=== PATIENT | female | born 1935 | race Caucasian/White ===

== ENCOUNTER 2020-04-04 19:34 | Emergency (ER) | payer MEDICARE ==
[~2020-04-04] VITALS: Ht 162.6 cm; Wt 70.3 kg
[~2020-04-04 19:34] MED LIST: ACYCLOVIR; CLONIPINE; DICYCLOMINE; GAS RELIEF; LAMOTRIGINE; LITHIUM; NEURONTIN; ONDANSETRON; ZANTAC
--- NOTE | 2020-04-04 19:40 | Emergency Department Note ---
History of Present Illnes History of Present Illness History of Present Illness This is a 84 year old female brought by family member after she was seen at urgent care. 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 Vertical Required: No Onset (how long ago): day(s) (1) Location: epigastric Radiation: Reports non-radiation Severity: moderate Onset quality: gradual Duration (how long): day(s) (1) Timing of current episode: intermittent Progression: waxing and waning Chronicity: new Context: Denies recent illness, Denies recent surgery, Denies recent immobilization, Denies recent travel, Denies trauma/injury, Denies new medications, Denies hx of DVT/PE, Denies non-compliance w/ medications, Denies other Relieving factors: none Exacerbating factors: none Associated symptoms: Denies denies other symptoms, Denies confusion, Denies chest pain, Denies cough, Denies diaphoresis, Denies fever/chills, Denies headaches, Denies loss of appetite, Denies malaise, Denies nausea/vomiting, Pedro es rash, Denies seizure, Denies shortness of breath, Denies syncope, Denies weakness, Denies other Past Medical/Family History Physician Review I have reviewed the patient's past medical and family history. Any updates have been documented here. Past Medical History Recent Fever: No Clinical Suspicion of Infectio: No New/Unexplained Change in Ment: No Past Medical History: Hypertension Other Medical History: EPILEPSY, BIPOLAR, ANEMIA, IBS Other Surgery: Social History Smoking Cessation: Never Smoker Alcohol Use: None Any Illegal Drug Use: No Other Last Tetanus: NA Review of Systems Review of Systems Constitutional: Reports no symptoms EENTM: Reports no symptoms Cardiovascular: Reports chest pain Respiratory: Reports no symptoms Gastrointestinal: Reports no symptoms Genitourinary: Reports no symptoms Musculoskeletal: Reports no symptoms Integumentary: Reports no symptoms Neurological: Reports no symptoms Psychological: Reports no symptoms Endocrine: Reports no symptoms Hematological/Lymphatic: Reports no symptoms Physical Exam Related Data Allergies: Coded Allergies: codeine (Verified Allergy, Mild, ITCHING, 11/23/11) iodine (Verified Allergy, Mild, ITCHING, 11/23/11) acetaminophen (Verified Allergy, Unknown, "FUNNY FEELINGS", 04/04/20) Uncoded Allergies: PENICILLIN (Allergy, Severe, ANAPHALACTIC SHOCK, 11/23/11) SULFA (Allergy, Mild, ITCHING, 11/23/11) Triage Vital Signs Vital Signs Date Time Temp Pulse Resp B/P (MAP) Pulse Ox O2 Delivery O2 Flow Rate FiO2 04/04/20 19:34 98.3 62 14 179/104 04/04/20 20:02 100 Room Air Vital signs reviewed: Yes Physical Exam CONSTITUTIONAL Constitutional: Present well-developed, Present well-nourished HENT HENT: Present normocephalic, Present atraumatic, Present oropharynx clear/moist, Present nose normal HENT L/R: Present left ext ear normal, Present right ext ear normal EYES Eyes: Reports PERRL, Reports conjunctivae normal NECK Neck: Present ROM normal PULMONARY Pulmonary: Present effort normal, Present breath sounds normal CARDIOVASCULAR Cardiovascular: Present regular rhythm, Present heart sounds normal, Present capillary refill normal, Present normal rate GASTROINTESTINAL Abdominal: Present soft, Present nontender, Present bowel sounds normal GENITOURINARY Genitourinary: Present exam deferred SKIN Skin: Present warm, Present dry MUSCULOSKELETAL Musculoskeletal: Present ROM normal NEUROLOGICAL Neurological: Present alert, Present oriented x 3, Present no gross motor or sensory deficits PSYCHOLOGICAL Psychological: Present mood/affect normal, Present judgement normal Results Laboratory Lab results reviewed: Yes Laboratory comments Laboratory Tests Test 04/04/20 19:51 White Blood Count 6.49 x10e3/uL (4.8-10.8) Red Blood Count 3.61 x10e6/uL (3.6-5.1) Hemoglobin 10.8 g/dL (12.0-16.0) Hematocrit 34.5 % (34.2-44.1) Mean Corpuscular Volume 95.6 fL (81-99) Mean Corpuscular Hemoglobin 29.9 pg (28-32) Mean Corpuscular Hemoglobin Concent 31.3 g/dL (31-35) Red Cell Distribution Width 13.2 % (11.7-14.4) Platelet Count 224 x10e3/uL (140-360) Neutrophils (%) (Auto) 48.7 % (38.7-80.0) Lymphocytes (%) (Auto) 40.2 % (18.0-39.1) Monocytes (%) (Auto) 7.7 % (4.4-11.3) Eosinophils (%) (Auto) 2.0 % (0.0-6.0) Basophils (%) (Auto) 1.1 % (0.0-1.0) Neutrophils # (Auto) 3.2 (2.1-6.9) Lymphocytes # (Auto) 2.6 (1.0-3.2) Monocytes # (Auto) 0.5 (0.2-0.8) Eosinophils # (Auto) 0.1 (0.0-0.4) Basophils # (Auto) 0.1 (0.0-0.1) Absolute Immature Granulocyte (auto 0.02 x10e3/uL (0-0.1) D-Dimer Quantitative (PE/DVT) 0.59 ug/mLFEU (0.00-0.45) Sodium Level 141 mmol/L (136-145) Potassium Level 4.4 mmol/L (3.5-5.1) Chloride Level 104 mmol/L (98-107) Carbon Dioxide Level 27 mmol/L (22-29) Anion Gap 14.4 mmol/L (8-16) Blood Urea Nitrogen 24 mg/dL (7-26) Creatinine 1.81 mg/dL (0.57-1.11) Estimat Glomerular Filtration Rate 27 ML/MIN (60-) BUN/Creatinine Ratio 13 (6-25) Glucose Level 105 mg/dL (74-118) Calcium Level 10.3 mg/dL (8.4-10.2) Total Bilirubin 0.2 mg/dL (0.2-1.2) Aspartate Amino Transf (AST/SGOT) 15 IU/L (5-34) Alanine Aminotransferase (ALT/SGPT) 12 IU/L (0-55) Alkaline Phosphatase 60 IU/L (40-150) Creatine Kinase 86 IU/L (29-168) Creatine Kinase MB 1.80 ng/mL (0-5.0) Troponin I 0.003 ng/mL (0-0.300) B-Type Natriuretic Peptide 31.1 pg/mL (0-100) Total Protein 7.9 g/dL (6.5-8.1) Albumin 4.6 g/dL (3.5-5.0) Globulin 3.3 g/dL (2.3-3.5) Albumin/Globulin Ratio 1.4 (0.8-2.0) Imaging Imaging results reviewed: Yes Impressions [facility] [address], [place], [place] [address] Patient Name: LUCINDA REYES MR #: [id number] : 1935 Age/Sex: 84/F Req #: [id number] Adm Physician: Ordered by: MINERVA SHINE DO Report #: [id number] Location: ER Room/Bed: Procedure: [id number] DX/CHEST 2 VIEWS Exam Date: 04/04/20 Exam Time: 2017 REPORT STATUS: Signed EXAMINATION: CHEST 2 VIEWS INDICATION: Pain. COMPARISON: None FINDINGS: TUBES and LINES: None. LUNGS: Lungs are hyperinflated. 8 mm oval calcific density projected on the lower lung on the lateral view suggestive of a granuloma. There is no evidence of pneumonia or pulmonary edema. PLEURA: No pleural effusion or pneumothorax. Biapical pleural scarring. HEART AND MEDIASTINUM: The cardiomediastinal silhouette is unremarkable. Thoracic aorta is mildly tortuous and unfolded. BONES AND SOFT TISSUES: There are degenerative changes in the thoracic spine. Soft tissues are unremarkable. UPPER ABDOMEN: No free air under the diaphragm. IMPRESSION: No acute thoracic abnormality. Signed by: Dr. Fadi Tate M.D. on 04/04/2020 8:52 PM Dictated By: MELANIA TATE MD, MD 51 Transcribed By: IRENA on 04/04/202051 COPY TO: MINERVA SHINE DO~ Procedures 12 Lead ECG Interpretation ECG Interpretation : ECG: ECG 1 Date: Apr 04, 2020 Time: 19:50 Prior ECG tracings: reviewed Rhythm: sinus bradycardia Rate: normal BPM: 58 QRS axis: normal ST segments normal: Yes T waves normal: Yes Q waves: V1, V2 Assessment & Plan Medical Decision Making MDM 84 yof with CP. Cardiac enzymes, EKG, and CXR/CT scan of chest wall ordered to evaluate for ACS, PNA, PTX, CHF, PE and aortic pathology Reassessment Reassessment admission offered but politely declined. Patient hemodynamically stable. oxygen saturation at 100%. Reports vertigo of one year duration seen and evaluated by neurology. Assessment & Plan Final Impression: (1) Chest pain (2) Renal insufficiency Depart Disposition: HOME, SELF-senior care Meds Reported Medications [Neurontin] No Conflict Check, PRN 11/23/11 [Neurontin] No Conflict Check 11/23/11 [Ondansetron] No Conflict Check, PRN 11/23/11 [Acyclovir] No Conflict Check, DAILY 11/23/11 [Gas Relief] No Conflict Check, DAILY 11/23/11 [Zantac] No Conflict Check, BID 11/23/11 [Lamotrigine] No Conflict Check, DAILY 11/23/11 [[place]] No Conflict Check, 1.5 DAILY 11/23/11 [Clonipine] No Conflict Check 11/23/11 MINERVA SHINE DO Apr 04, 2020 19:40
[2020-04-04] MEDS ORDERED: ASPIRIN 81 MG CHEW TAB PO ONE (19:45)
[2020-04-04 20:01] LABS: BASOPHILS # (AUTO) 0.1 (0.0-0.1); BASOPHILS % 1.1 % (0.0-1.0); EOSINOPHILS # (AUTO) 0.1 (0.0-0.4); HEMATOCRIT 34.5 % (34.2-44.1); HEMOGLOBIN 10.8 g/dL (12.0-16.0); LYMPHOCYTES # (AUTO) 2.6 (1.0-3.2); LYMPHOCYTES % 40.2 % (18.0-39.1); MEAN CORPUSCULAR HEMOGLOBIN 29.9 pg (28-32); MEAN CORPUSCULAR HGB CONC 31.3 g/dL (31-35); MEAN CORPUSCULAR VOLUME 95.6 fL (81-99); MONOCYTES # (AUTO) 0.5 (0.2-0.8); MONOCYTES % 7.7 % (4.4-11.3); NEUTROPHILS # (AUTO) 3.2 (2.1-6.9); NEUTROPHILS % 48.7 % (38.7-80.0); PLATELET COUNT 224 x10e3/uL (140-360); RED BLOOD COUNT 3.61 x10e6/uL (3.6-5.1); RED CELL DISTRIBUTION WIDTH 13.2 % (11.7-14.4)
[2020-04-04 20:18] LABS: ALBUMIN 4.6 g/dL (3.5-5.0); ALBUMIN/GLOBULIN RATIO 1.4 (0.8-2.0); ANION GAP 14.4 mmol/L (8-16); CALCIUM 10.3 mg/dL (8.4-10.2); CREATININE, SERUM 1.81 mg/dL (0.57-1.11); POTASSIUM 4.4 mmol/L (3.5-5.1)
[2020-04-04 20:24] LABS: CREATINE KINASE MB 1.8 ng/mL (0-5.0)
--- NOTE | 2020-04-04 20:30 | NUR ---
PT REPORTS DIZZINESS AFTER MOVING FROM STRETCHER TO CT TABLE. ER MD NOTIFIED AND AWARE. NEW ORDER PLACED BY ER MD.
--- OUTSIDE RECORDS SUMMARY | 2020-04-04 20:38 | XMS REPORT | Continuity of Care Document ---
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 Name Role Phone [employer] Unavailable Un available Problems Problem Status Onset Date Classification Date Reported Comments Source Hypothyroidism Active 08/09/2013 [facility] Fatigue Active 08/09/2013 [facility] Chronic Kidney Disease, Stage 3 Active 08/09/2013 [facility] Limb Swelling Active 08/09/2013 [facility] Medications Medication Details Route Status Patient Instructions Ordering Provider Order Date Source [place] Carbonate 300 MG Oral Tablet ; Start Date: 08/06/2013 (Active) Active 08/06/2013 [facility] ClonazePAM 0.5 MG Oral Tablet ; Start Date: 08/06/2013 (Active) Active 08/06/2013 [facility] Meclizine HCl 25 MG Oral Tablet ; Start Date: 08/06/2013 (Active) Active 08/06/2013 [facility] LamoTRIgine TABS (Active) Active [facility] Gabapentin 100 MG Oral Capsule (Active) Active [facility] Prochlorperazine Maleate 10 MG Oral Tablet (Active) Active [facility] Dicyclomine HCl 10 MG Oral Capsule (Active) Active [facility] MiraLax POWD (Active) Active [facility] Gas Relief CAPS (Active) Active [facility] Allergies, Adverse Reactions, Alerts Substance Category Reaction Severity Reaction type Status Date Reported Comments Source Penicillins drug allergy drug allergy Active [facility] Codeine Derivatives drug aller gy drug aller gy Active [facility] Sulfa Drugs drug allergy drug allergy Active [facility] Iodides drug allergy drug allergy Active [facility] Immunizations No Data Provided for This Section Results No Data Provided for This Section Pathology Reports No Data Provided for This Section Diagnostic Reports No Data Provided for This Section Consultation Notes No Data Provided for This Section Discharge Summaries No Data Provided for This Section History and Physicals No Data Provided for This Section Vital Signs No Data Provided for This Section Encounters Location Location Details Encounter Type Encounter Number Reason For Visit Attending Provider ADM Date DC Date Status Source AUDIT [id number] 08/06/2013 08/06/2013 [facility] AUDIT [id number] 08/07/2013 08/07/2013 [facility] Camille MARTÍNEZi steven: ALONA ARIAS, Status: Pen, Time: 3:00 PM [id number] 08/08/19 14 08/07/2013 [facility] AUDIT [id number] 08/09/2013 08/09/2013 [facility] Procedures No Data Provided for This Section Assessment and Plan No Data Provided for This Section Plan of Care Plan of Care Date Source [QLH] VITAMIN B12 08/06/2013 Routine[QLH ] MICROALBUMIN, RANDOM URINE (W/CREATININE) 08/06/2013 Routine[QL] VITAMIN D, 25-HYDROXY, LC/MS/MS 08/06/2013 Routine[N] Venous Duplex Lower Bilateral 08/06/2013 Routine 08/07/2013 [facility] [QLH] VITAMIN B12 08/06/2013 Routine[QLH ] TSH, 3RD GENERATION W/REFLEX TO FT4 08/06/2013 Routine[QLH] MICROALBUMIN, RANDOM URINE (W/CREATININE) 08/06/2013 Routine[QLH] URINALYSIS, COMPLETE 08/06/2013 Routine[QLH] BASIC METABOLIC PANEL W/EGFR 08/06/2013 Routine[QL] VITAMIN D, 25-HYDROXY, LC/MS/MS 08/06/2013 Routine[N] Venous Duplex Lower Bilateral 08/06/2013 Routine 08/06/2013 [facility] Social History Social History Date Source Marital History - (Active ) No History of Alcohol Use (Denied) Never A Smoker (Active) No History of Drug Use (Denied) Occupation: Retired (Active) 08/09/2013 [facility] Family History Value Date S ource Paternal history of Acute Myocardial Inf arction (V17.3); (Active) Paternal history of Adopted (Active) 08/09/2013 [facility] Paternal history of Acute Myocardial Inf arction (V17.3); (Active) Paternal history of Adopted (Active) 08/07/2013 [facility] Paternal history of Acute Myocardial Inf arction (V17.3); (Active) Paternal history of Adopted (Active) 08/06/2013 [facility] Advance Directives Order Name Results Value Date Source Advance Directives Advance Dir ectives No Advance Directives available. 08/09/2013 [facility] Advance Directives Advance Dir ectives No Advance Directives available. 08/07/2013 [facility] Advance Directives Advance Dir ectives No Advance Directives available. 08/06/2013 [facility] Functional Status No Data Provided for This Section
--- OUTSIDE RECORDS SUMMARY | 2020-04-04 20:38 | XMS REPORT | Continuity of Care Document ---
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 Liquefier Name Role Phone Unavailable Unavailable Payers Payer Name Policy Type Policy Number Effective Date Expiration Date S ource Problems Condition Name Condition Details Condition Category Status Onset Date Resolution Date Last Treatment Date Treating Clinician Comments Source Hypothyroidism Hypo thyroidism Active 08/09/2013 [facility] Problem Active 2013-08-09 20:01:18 M ismael Quinonez Fatigue Fati venancio Active 08/09/2013 [facility] Problem Active 2013-08-09 20:01:18 Dyllan Quinonez Chronic Kidney Disease, Stage 3 Chronic Kidney Disease, Stage 3 Active 08/09/2013 [facility] Problem Active 2 20:01:18 Aleksandar Quinonez Limb Swelling Limb Swelling Active 08/09/2013 [facility] Problem Active 2013-08-09 20:01:18 M ismael Quinonez Allergies, Adverse Reactions, Alerts Allergy Name Allergy Type Status Severity Reaction(s) Onset Date Inacti ve Date Treating Clinician Comments Source Iodinated Contrast Media DA Active SV 2020-01-20 00:00:00 [facility] Penicillins DA Active SV 2020-01-20 00:00:00 [facility] Sulfa (Sulfonamide Antibiotics) DA Active U 2020-01-20 00 :00:00 [facility] codeine DA Active U 2020-01-20 00:00:00 [facility] Iodinated Contrast Media DA Active SV 2018-08-18 00:00:00 [facility] Penicillins DA Active SV 2018-08-18 00:00:00 [facility] Sulfa (Sulfonamide Antibiotics) DA Active U 2018-08-18 00 :00:00 [facility] codeine DA Active U 2018-08-18 00:00:00 [facility] Penicillins DA Active U 2010-12-10 00:00:00 [facility] Sulfa (Sulfonamide Antibiotics) DA Active U 2010-12-10 00 :00:00 [facility] codeine DA Active U 2010-12-10 00:00:00 [facility] CODEINE DA Active U 2005-08-11 00:00:00 [facility] IODINE CONTRAST DA Active U 2005-08-11 00:00:00 [facility] No Known Food Allergies DA Active U 2005-08-11 00:00:00 [facility] No Known Other Allergies DA Active U 2005-08-11 00:00:00 [facility] PENICILLIN DA Active U 2005-08-11 00:00:00 [facility] SULFA DRUGS DA Active U 2005-08-11 00:00:00 [facility] Penicillins [facility] Active [facility] Codeine Derivatives Codeine Derivatives Active [facility] Sulfa Drugs Sulfa Drugs Active [facility] Iodides Iodides Active [facility] Family History Family Member Diagnosis Comments Start Date Stop Date Source Unknown Family Member Family History 2013-08-06 21:25:39 2 21:25:39 Aleksandar [place] Social History Social Habit Start Date Stop Date Quantity Comments Source Social History 2013-08-09 20:01:18 2013-08-09 20:01:18 Aleksandar Quinonez Medications Ordered Medication Name Filled Medication Name Start Date Stop Da te Current Medication? Ordering Clinician Indication Dosage Frequency Signature (SIG) Comments Components Source LamoTRIgine TABS 2013-08-09 20:01:18 Yes (A ctive) Aleksandar Quinonez Gabapentin 100 MG Oral Capsule 2013-08-09 20:01:18 Yes (Active) Aleksandar Quinonez Prochlorperazine Maleate 10 MG Oral Tablet 2013-08-09 20:01:18 Yes (Active) Aleksandar Quinonez Dicyclomine HCl 10 MG Oral Capsule 2013-08-09 20:01:18 Yes (Active) Aleksandar Quinonez MiraLax POWD 2013-08-09 20:01:18 Yes (Activ e) Aleksandar Quinonez Gas Relief CAPS 2013-08-09 20:01:18 Yes (Ac tive) Aleksandar Quinonez [place] Carbonate 300 MG Oral Tablet 2013-08-06 06:00:00 Ye s ; Start Date: 08/06/2013 (Active) Aleksandar Flores nn ClonazePAM 0.5 MG Oral Tablet 2013-08-06 06:00:00 Yes ; Start Date: 08/06/2013 (Active) Aleksandar Quinonez Meclizine HCl 25 MG Oral Tablet 2013-08-06 06:00:00 Yes ; Start Date: 08/06/2013 (Active) Aleksandar Flores nn Procedures This patient has no known procedures. Plan of Care Planned Activity Planned Date Details Comments Source Future Scheduled Test 2013-08-07 15:01:09 Plan of Care [code = 1877 6-5] [facility] [place] Future Scheduled Test 2013-08-06 21:25:39 Plan of Care [code = 1877 6-5] [facility] Encounters Start Date/Time End Date/Time Encounter Type Admission Type [facility] Care Department Encounter ID Source 2013-08-09 14:01:18 2013-08-09 14:01:18 Outpatient MONIQUE CROOK [id number] 2013-08-07 09:01:10 2013-08-07 09:01:09 Outpatient MONIQUE MONIQUE [id number] 2013-08-06 15:25:39 2013-08-06 15:25:39 Outpatient MONIQUE MONIQUE [id number] Results Test Description Test Time Test Comments Results Result Comments Source BASIC METABOLIC PANEL 2020-02-08 03:34:00 Test Item SODIUM (test code = NA) 140 mmol/L 136-145 N POTASSIUM (test code = K) 4.5 mmol/L 3.5-5.1 N CHLORIDE (test code = CL) 111.0 mmol/L 98-107 H CARBON DIOXIDE (test code = CO2) 20.0 mmol/L 21-32 L ANION GAP (test code = GAP) 13.5 10-20 N GLUCOSE (test code = GLU) 98 mg/dL 74-106 N BLOOD UREA NITROGEN (test code = BUN) 30 mg/dL 7-18 H RESULT VERIFIED BY REPEAT ANALYSIS GLOMERULAR FILTRATION RATE (test code = GFR) 33 mL/min >=60 Estimated GFR by using Modified MDRD formula.Chronic kidney disease is defined as either kidney damageor GFR <60 mL/min/1.73 m2 for >3 months. CREATININE (test code = CREAT) 1.50 mg/dL 0.55-1.02 H Note change in reference range due to change in reagent. BUN/CREATININE RATIO (test code = BUN/CREA) 20.0 10-20 N CALCIUM (test code = CA) 9.6 mg/dL 8.5-10.1 N BASIC METABOLIC [id number] 03:08:00* Test Item Value Reference Range Interpretation Comments SODIUM (test code = NA) 140 mmol/L 136-145 N POTASSIUM (test code = K) 4.5 mmol/L 3.5-5.1 N CHLORIDE (test code = CL) 111.0 mmol/L 98-107 H CARBON DIOXIDE (test code = CO2) mmol/L 21-32 ANION GAP (test code = GAP) 10-20 GLUCOSE (test code = GLU) mg/dL 74-106 BLOOD UREA NITROGEN (test code = BUN) mg/dL 7-18 GLOMERULAR FILTRATION RATE (test code = GFR) mL/min >=60 CREATININE (test code = CREAT) mg/dL 0.55-1.02 BUN/CREATININE RATIO (test code = BUN/CREA) 10-20 CALCIUM (test code = CA) mg/dL 8.5-10.1 CBC W/AUTO [id number] 03:04:00* Test Item Value Reference Range Interpretation Comments WHITE BLOOD CELL (test code = WBC) 8.2 K/mm3 4.5-12.5 N RED BLOOD CELL (test code = RBC) 3.68 mill/mm3 3.7-5.2 L HEMOGLOBIN (test code = HGB) 11.0 gram/dL 11.5-15.5 L HEMATOCRIT (test code = HCT) 35.7 % 36.0-46.0 L MEAN CELL VOLUME (test code = MCV) 97.0 fL 80-98 N MEAN CELL HGB (test code = MCH) 29.9 picogram 27.0-33.0 N MEAN CELL HGB CONCETRATION (test code = MCHC) 30.8 gram/dL 33.0-36. 0 L RED CELL DISTRIBUTION WIDTH (test code = RDW) 13.7 % 11.6-16. 2 N RED CELL DISTRIBUTION WIDTH SD (test code = RDW-SD) 48.4 fL 37 .0-51.0 N PLATELET COUNT (test code = PLT) 242 K/mm3 150-450 N MEAN PLATELET VOLUME (test code = MPV) 9.6 fL 6.7-11.0 N NEUTROPHIL % (test code = NT%) 53.1 % 39.0-69.0 N IMMATURE GRANULOCYTE % (test code = IG%) 0.2 % 0.0-5.0 N LYMPHOCYTE % (test code = LY%) 34.5 % 25.0-55.0 N MONOCYTE % (test code = MO%) 9.3 % 0.0-10.0 N EOSINOPHIL % (test code = EO%) 2.3 % 0.0-5.0 N BASOPHIL % (test code = BA%) 0.6 % 0.0-1.0 N NUCLEATED RBC % (test code = NRBC%) 0.0 % 0-0 N NEUTROPHIL # (test code = NT#) 4.36 K/mm3 1.8-7.7 N IMMATURE GRANULOCYTE # (test code = IG#) 0.02 x10 3/uL 0-0.03 N LYMPHOCYTE # (test code = LY#) 2.83 K/mm3 1.0-5.0 N MONOCYTE # (test code = MO#) 0.76 K/mm3 0-0.8 N EOSINOPHIL # (test code = EO#) 0.19 K/mm3 0.0-0.5 N BASOPHIL # (test code = BA#) 0.05 K/mm3 0.0-0.2 N NUCLEATED RBC # (test code = NRBC#) 0.00 K/mm3 0.0-0.1 N MANUAL DIFF REQUIRED (test code = MDIFF) NO BASIC METABOLIC [id number] 03:25:00* Test Item Value Reference Range Interpretation Comments SODIUM (test code = NA) 139 mmol/L 136-145 N POTASSIUM (test code = K) 4.7 mmol/L 3.5-5.1 N CHLORIDE (test code = CL) 109.0 mmol/L 98-107 H CARBON DIOXIDE (test code = CO2) 21.0 mmol/L 21-32 N ANION GAP (test code = GAP) 13.7 10-20 N GLUCOSE (test code = GLU) 110 mg/dL 74-106 H BLOOD UREA NITROGEN (test code = BUN) 24 mg/dL 7-18 H GLOMERULAR FILTRATION RATE (test code = GFR) 33 mL/min >=60 Estimated GFR by using Modified MDRD formula.Chronic kidney disease is defined as either kidney damageor GFR <60 mL/min/1.73 m2 for >3 months. CREATININE (test code = CREAT) 1.50 mg/dL 0.55-1.02 H Note change in reference range due to change in reagent. BUN/CREATININE RATIO (test code = BUN/CREA) 15.9 10-20 N CALCIUM (test code = CA) 9.7 mg/dL 8.5-10.1 N BASIC METABOLIC [id number] 03:13:00* Test Item Value Reference Range Interpretation Comments SODIUM (test code = NA) 139 mmol/L 136-145 N POTASSIUM (test code = K) 4.7 mmol/L 3.5-5.1 N CHLORIDE (test code = CL) 109.0 mmol/L 98-107 H CARBON DIOXIDE (test code = CO2) mmol/L 21-32 ANION GAP (test code = GAP) 10-20 GLUCOSE (test code = GLU) mg/dL 74-106 BLOOD UREA NITROGEN (test code = BUN) mg/dL 7-18 GLOMERULAR FILTRATION RATE (test code = GFR) mL/min >=60 CREATININE (test code = CREAT) mg/dL 0.55-1.02 BUN/CREATININE RATIO (test code = BUN/CREA) 10-20 CALCIUM (test code = CA) mg/dL 8.5-10.1 CBC W/AUTO [id number] 02:54:00* Test Item Value Reference Range Interpretation Comments WHITE BLOOD CELL (test code = WBC) 8.8 K/mm3 4.5-12.5 N RED BLOOD CELL (test code = RBC) 3.92 mill/mm3 3.7-5.2 N HEMOGLOBIN (test code = HGB) 11.6 gram/dL 11.5-15.5 N HEMATOCRIT (test code = HCT) 38.0 % 36.0-46.0 N MEAN CELL VOLUME (test code = MCV) 96.9 fL 80-98 N MEAN CELL HGB (test code = MCH) 29.6 picogram 27.0-33.0 N MEAN CELL HGB CONCETRATION (test code = MCHC) 30.5 gram/dL 33.0-36. 0 L RED CELL DISTRIBUTION WIDTH (test code = RDW) 13.6 % 11.6-16. 2 N RED CELL DISTRIBUTION WIDTH SD (test code = RDW-SD) 48.6 fL 37 .0-51.0 N PLATELET COUNT (test code = PLT) 257 K/mm3 150-450 N MEAN PLATELET VOLUME (test code = MPV) 9.8 fL 6.7-11.0 N NEUTROPHIL % (test code = NT%) 62.8 % 39.0-69.0 N IMMATURE GRANULOCYTE % (test code = IG%) 0.3 % 0.0-5.0 N LYMPHOCYTE % (test code = LY%) 27.2 % 25.0-55.0 N MONOCYTE % (test code = MO%) 8.0 % 0.0-10.0 N EOSINOPHIL % (test code = EO%) 1.4 % 0.0-5.0 N BASOPHIL % (test code = BA%) 0.3 % 0.0-1.0 N NUCLEATED RBC % (test code = NRBC%) 0.0 % 0-0 N NEUTROPHIL # (test code = NT#) 5.52 K/mm3 1.8-7.7 N IMMATURE GRANULOCYTE # (test code = IG#) 0.03 x10 3/uL 0-0.03 N LYMPHOCYTE # (test code = LY#) 2.39 K/mm3 1.0-5.0 N MONOCYTE # (test code = MO#) 0.70 K/mm3 0-0.8 N EOSINOPHIL # (test code = EO#) 0.12 K/mm3 0.0-0.5 N BASOPHIL # (test code = BA#) 0.03 K/mm3 0.0-0.2 N NUCLEATED RBC # (test code = NRBC#) 0.00 K/mm3 0.0-0.1 N MANUAL DIFF REQUIRED (test code = MDIFF) NO CBC W/AUTO [id number] 02:53:00* Test Item Value Reference Range Interpretation Comments WHITE BLOOD CELL (test code = WBC) K/mm3 4.5-12.5 RED BLOOD CELL (test code = RBC) mill/mm3 3.7-5.2 HEMOGLOBIN (test code = HGB) 11.6 gram/dL 11.5-15.5 N HEMATOCRIT (test code = HCT) 38.0 % 36.0-46.0 N MEAN CELL VOLUME (test code = MCV) fL 80-98 MEAN CELL HGB (test code = MCH) picogram 27.0-33.0 MEAN CELL HGB CONCETRATION (test code = MCHC) gram/dL 33.0-36. 0 RED CELL DISTRIBUTION WIDTH (test code = RDW) % 11.6-16. 2 RED CELL DISTRIBUTION WIDTH SD (test code = RDW-SD) fL 37 .0-51.0 PLATELET COUNT (test code = PLT) 257 K/mm3 150-450 N MEAN PLATELET VOLUME (test code = MPV) fL 6.7-11.0 NEUTROPHIL % (test code = NT%) % 39.0-69.0 IMMATURE GRANULOCYTE % (test code = IG%) % 0.0-5.0 LYMPHOCYTE % (test code = LY%) % 25.0-55.0 MONOCYTE % (test code = MO%) % 0.0-10.0 EOSINOPHIL % (test code = EO%) % 0.0-5.0 BASOPHIL % (test code = BA%) % 0.0-1.0 NEUTROPHIL # (test code = NT#) K/mm3 1.8-7.7 LYMPHOCYTE # (test code = LY#) K/mm3 1.0-5.0 MONOCYTE # (test code = MO#) K/mm3 0-0.8 EOSINOPHIL # (test code = EO#) K/mm3 0.0-0.5 BASOPHIL # (test code = BA#) K/mm3 0.0-0.2 BASIC METABOLIC [id number] 13:56:00* Test Item Value Reference Range Interpretation Comments SODIUM (test code = NA) 139 mmol/L 136-145 N POTASSIUM (test code = K) 4.6 mmol/L 3.5-5.1 N CHLORIDE (test code = CL) 108.0 mmol/L 98-107 H CARBON DIOXIDE (test code = CO2) 22.0 mmol/L 21-32 N ANION GAP (test code = GAP) 13.6 10-20 N GLUCOSE (test code = GLU) 131 mg/dL 74-106 H BLOOD UREA NITROGEN (test code = BUN) 24 mg/dL 7-18 H GLOMERULAR FILTRATION RATE (test code = GFR) 29 mL/min >=60 Estimated GFR by using Modified MDRD formula.Chronic kidney disease is defined as either kidney damageor GFR <60 mL/min/1.73 m2 for >3 months. CREATININE (test code = CREAT) 1.70 mg/dL 0.55-1.02 H Note change in reference range due to change in reagent. BUN/CREATININE RATIO (test code = BUN/CREA) 14.5 10-20 N CALCIUM (test code = CA) 9.8 mg/dL 8.5-10.1 N [id number] 03:05:00* Test Item Value Reference Range Interpretation Comments GLYCOSYLATED HEMOGLOBIN (HA1C) (test code = GLYHGB) 5.6 % HbA1 SUGGESTED DIAGNOSIS: HbA1C (%) Diabetic >6.4Prediabetes 5.7 - 6.4Normal <5.7 ESTIMATED AVERAGE GLUCOSE (test code = EAG) 114 MG/DL BASIC METABOLIC [id number] 02:51:00* Test Item Value Reference Range Interpretation Comments SODIUM (test code = NA) 139 mmol/L 136-145 N POTASSIUM (test code = K) 5.2 mmol/L 3.5-5.1 H CHLORIDE (test code = CL) 108.0 mmol/L 98-107 H CARBON DIOXIDE (test code = CO2) 22.0 mmol/L 21-32 N ANION GAP (test code = GAP) 14.2 10-20 N GLUCOSE (test code = GLU) 112 mg/dL 74-106 H BLOOD UREA NITROGEN (test code = BUN) 23 mg/dL 7-18 H GLOMERULAR FILTRATION RATE (test code = GFR) 31 mL/min >=60 Estimated GFR by using Modified MDRD formula.Chronic kidney disease is defined as either kidney damageor GFR <60 mL/min/1.73 m2 for >3 months. CREATININE (test code = CREAT) 1.60 mg/dL 0.55-1.02 H Note change in reference range due to change in reagent. BUN/CREATININE RATIO (test code = BUN/CREA) 14.6 10-20 N CALCIUM (test code = CA) 10.0 mg/dL 8.5-10.1 N BASIC METABOLIC [id number] 02:40:00* Test Item Value Reference Range Interpretation Comments SODIUM (test code = NA) 139 mmol/L 136-145 N POTASSIUM (test code = K) 5.2 mmol/L 3.5-5.1 H CHLORIDE (test code = CL) 108.0 mmol/L 98-107 H CARBON DIOXIDE (test code = CO2) mmol/L 21-32 ANION GAP (test code = GAP) 10-20 GLUCOSE (test code = GLU) mg/dL 74-106 BLOOD UREA NITROGEN (test code = BUN) mg/dL 7-18 GLOMERULAR FILTRATION RATE (test code = GFR) mL/min >=60 CREATININE (test code = CREAT) mg/dL 0.55-1.02 BUN/CREATININE RATIO (test code = BUN/CREA) 10-20 CALCIUM (test code = CA) mg/dL 8.5-10.1 CBC W/AUTO [id number] 02:27:00* Test Item Value Reference Range Interpretation Comments WHITE BLOOD CELL (test code = WBC) 8.3 K/mm3 4.5-12.5 N RED BLOOD CELL (test code = RBC) 3.71 mill/mm3 3.7-5.2 N HEMOGLOBIN (test code = HGB) 11.3 gram/dL 11.5-15.5 L HEMATOCRIT (test code = HCT) 35.6 % 36.0-46.0 L MEAN CELL VOLUME (test code = MCV) 96.0 fL 80-98 N MEAN CELL HGB (test code = MCH) 30.5 picogram 27.0-33.0 N MEAN CELL HGB CONCETRATION (test code = MCHC) 31.7 gram/dL 33.0-36. 0 L RED CELL DISTRIBUTION WIDTH (test code = RDW) 13.7 % 11.6-16. 2 N RED CELL DISTRIBUTION WIDTH SD (test code = RDW-SD) 48.4 fL 37 .0-51.0 N PLATELET COUNT (test code = PLT) 248 K/mm3 150-450 N MEAN PLATELET VOLUME (test code = MPV) 9.4 fL 6.7-11.0 N NEUTROPHIL % (test code = NT%) 66.6 % 39.0-69.0 N IMMATURE GRANULOCYTE % (test code = IG%) 0.4 % 0.0-5.0 N LYMPHOCYTE % (test code = LY%) 23.7 % 25.0-55.0 L MONOCYTE % (test code = MO%) 7.6 % 0.0-10.0 N EOSINOPHIL % (test code = EO%) 1.1 % 0.0-5.0 N BASOPHIL % (test code = BA%) 0.6 % 0.0-1.0 N NUCLEATED RBC % (test code = NRBC%) 0.0 % 0-0 N NEUTROPHIL # (test code = NT#) 5.54 K/mm3 1.8-7.7 N IMMATURE GRANULOCYTE # (test code = IG#) 0.03 x10 3/uL 0-0.03 N LYMPHOCYTE # (test code = LY#) 1.97 K/mm3 1.0-5.0 N MONOCYTE # (test code = MO#) 0.63 K/mm3 0-0.8 N EOSINOPHIL # (test code = EO#) 0.09 K/mm3 0.0-0.5 N BASOPHIL # (test code = BA#) 0.05 K/mm3 0.0-0.2 N NUCLEATED RBC # (test code = NRBC#) 0.00 K/mm3 0.0-0.1 N MANUAL DIFF REQUIRED (test code = MDIFF) NO [id number] 20:26:00* Test Item Value Reference Range Interpretation Comments GLUBED (test code = GLUBED) 126 mg/dL 74-106 H Performed by certified scrap shear operator at [facility] LIPID PROFILE (CORONARY RISK)2020-02-05 19:03:00* Test Item Value Reference Range Interpretation Comments TRIGLYCERIDES (test code = TRIG) 367 mg/dL 20-150 H CHOLESTEROL (test code = CHOL) 313 mg/dL 0-200 H CHOLESTEROL/HDL RATIO (test code = CHOLHDL) 6.0 RATIO 0-4.9 H RISK ASSOCIATED WITH CHOL/HDL RATIOS: Risk Male Female1/2 AVERAGE 3.43 3.27AVERAGE 4.97 4.442X AVERAGE 9.55 7.053X AVERAGE 23.39 11.04 REFERENCE VALUE IS RELATED TO RISK LEVELS ASRECOMMENDED BY THE [facility]. HEART, LUNG, AND BLOOD INST. HDL CHOLESTEROL (test code = HDL) 51 mg/dL 40-60 N LIPOPROTEIN LDL (test code = LDL) 189 mg/dL 100-129 H RN PERSONNEL, CONTACT PHYSICIAN IMMEDIATELY IF THIS IS A STROKE, AMI OR CAROTID STENOSIS PATIENT WHEN THE LDL >100 (1ST OCCURENCE, THIS ADMISSION) Reference Interval: mg/dL mmol/L Optimal <100 <2.6Near/above optimal 100-129 2.6- 3.3Borderline High 130-159 3.4-4.1High 160-189 4.1-4.9Very High >=190 >=4.9========= This LDL result is a direct measurement.========= BASIC METABOLIC [id number] 18:57:00* Test Item Value Reference Range Interpretation Comments SODIUM (test code = NA) 140 mmol/L 136-145 N POTASSIUM (test code = K) 5.0 mmol/L 3.5-5.1 N CHLORIDE (test code = CL) 110.0 mmol/L 98-107 H CARBON DIOXIDE (test code = CO2) 24.0 mmol/L 21-32 N ANION GAP (test code = GAP) 11.0 10-20 N GLUCOSE (test code = GLU) 116 mg/dL 74-106 H BLOOD UREA NITROGEN (test code = BUN) 20 mg/dL 7-18 H GLOMERULAR FILTRATION RATE (test code = GFR) 31 mL/min >=60 Estimated GFR by using Modified MDRD formula.Chronic kidney disease is defined as either kidney damageor GFR <60 mL/min/1.73 m2 for >3 months. CREATININE (test code = CREAT) 1.60 mg/dL 0.55-1.02 H Note change in reference range due to change in reagent. BUN/CREATININE RATIO (test code = BUN/CREA) 12.3 10-20 N CALCIUM (test code = CA) 10.6 mg/dL 8.5-10.1 H BASIC METABOLIC [id number] 18:52:00* Test Item Value Reference Range Interpretation Comments SODIUM (test code = NA) 140 mmol/L 136-145 N POTASSIUM (test code = K) 5.0 mmol/L 3.5-5.1 N CHLORIDE (test code = CL) 110.0 mmol/L 98-107 H CARBON DIOXIDE (test code = CO2) mmol/L 21-32 ANION GAP (test code = GAP) 10-20 GLUCOSE (test code = GLU) mg/dL 74-106 BLOOD UREA NITROGEN (test code = BUN) mg/dL 7-18 GLOMERULAR FILTRATION RATE (test code = GFR) mL/min >=60 CREATININE (test code = CREAT) mg/dL 0.55-1.02 BUN/CREATININE RATIO (test code = BUN/CREA) 10-20 CALCIUM (test code = CA) mg/dL 8.5-10.1 - US RETRO [id number] 17:24:00 Name: LUCINDA REYES [facility] : 1935 Age/S: 84 / F [address] [facility] Unit #: [id number] Loc: [place] [address] Phys: Zina Gomez MD Acct: [id number] Dis Date: Status: ADM IN PHONE #: [phone] Exam Date: 02/05/2020 1702 FAX #: [phone] Reason: urinary urgency EXAMS: CPT CODE: [id number] US RETRO LTD [id number] REASON FOR EXAM: urinary urgency EXAM ORDER DATE: 02/05/2020 3:41 PM Ordering: Zina Goemz MD Attending:Larissa Pino MD Location:[facility] PROCEDURE: - US RETRO LTD FINDINGS: The right kidney measures 9.3 x 4.6 cm. The cross-sectional thickness of the right renal cortex measured 0.8 cm. The left kidney measures 10.9 x 5.5 cm. The cross-sectional thickness of the left renal cortex measured 1 cm. There is no evidence of hydronephrosis. There is no evidence of nephrolithiasis. The urinary bladder is unremarkable IMPRESSION: Echogenic kidneys consistent with chronic medical renal disease. Small bilateral renal cysts (one CM on the left and 3.3 cm on the right). at 1724 Reported and signed by: Terry Mccallum M.D. CC: Zina Gomez MD Technologist: MARJORIE UREÑA RDMS Trnscb Date/Time: 02/05/2020 (1723) [email or web address] Orig Print D/T: S: 02/05/2020 (1727) Probe: PAGE 1 Signed Report - CT ABD PELVIS W/O [id number] 13:57:00 Name: LUCINDA REYES [facility] : 1935 Age/S: 84 / F [address] [facility] Unit #: [id number] Loc: [place] [address] Phys: Zina Gomez MD Acct: [id number] Dis Date: Status: REG ER PHONE #: [phone] Exam Date: 02/05/2020 1328 FAX #: [phone] Reason: lower abdominal pain EXAMS: CPT CODE: [id number] CT ABD PELVIS W/O CONT [id number] REASON FOR EXAM: lower abdominal pain EXAM ORDER DATE: 02/05/2020 1:01 PM Ordering Priya: Zina Gomez MD PROCEDURE: Axial CT images were acquired through the abdomen/pelvis at 5 mm intervals. Sagittal and coronal reformatted images were generated. Automated exposure control was utilized for this reduction. Phases of contrast: None COMPARISON: CT abdomen and pelvis January 18, 2019 FINDINGS: The absence of IV contrast limits sensitivity of this exam for the detection of soft tissue pathology Visualized thorax: There is a tubular opacity in the left lung base (3/10) that is unchanged from the previous exam and may represent parenchymal scarring. There is also a 4 mm nodule in the left lung base (2/14) that is unchanged from the previous exam. Hepatobiliary system: Multilobulated cystic lesions in the hepatic dome are unchanged from the previous exam and likely represent benign cysts. Prior cholecystectomy. Pancreas: Atrophic Spleen: Calcified granulomas are present in the parenchyma Adrenal glands: Grossly normal Genitourinary system: Cortical cyst in the upper pole of the right kidney and smaller cortical cysts in the midpole of the left kidney are unchanged from the previous exam. Punctate hyperdensity in the midpole of the right kidney (2/39) may represent a nonobstructing stone versus vascular calcification. Urinary bladder is markedly distended. Gynecologic organs are grossly within normal limits Gastrointestinal tract and appendix: There is diverticulosis of the descen ding and sigmoid colon without evidence of diverticulitis. 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 No omental or mesenteric masses. No abnormal lymph nodes. Musculoskeletal structures and abdominal wall: There is degeneration of the L5-S1 disc and there are also degenerative changes in the pubic symphysis. IMPRESSION: Colonic diverticulosis without diverticulitis. Marked distention of the urinary bladder. Pulmonary nodules described above are unchanged from the previous CT scan January 2019 suggesting a benign etiology. Location: [facility] at 1357 Reported and signed by: Nain Ko MD CC: Zina Gomez MD Technologist:Pelon Villanueva RT(R),(MR),(CT); CTDI: DLP: Trnscb Date/Time: 02/05/2020 (1357) [email or web address] Orig Print D/T: S: 02/05/2020 (1400) PAGE 2 Signed Report URINALYSIS [id number] 13:36:00* Test Item Value Reference Range Interpretation Comments UA COLOR (test code = COLU) YELLOW YELLOW UA APPEARANCE (test code = APPU) CLEAR CLEAR UA GLUCOSE DIPSTICK (test code = DGLUU) NEGATIVE mg/dL NEGATIVE UA BILIRUBIN DIPSTICK (test code = BILU) NEGATIVE mg/dL NEGATIVE UA KETONE DIPSTICK (test code = KETU) NEGATIVE mg/dL NEGATIVE UA SPECIFIC GRAVITY (test code = SGU) 1.006 1.001-1.035 UA BLOOD DIPSTICK (test code = PEDRO) Negative mg/dL NEGATIVE UA PH DIPSTICK (test code = NOHELIA) 7.0 5.0-8.0 UA PROTEIN DIPSTICK (test code = PROU) NEGATIVE mg/dL NEGATIVE UA UROBILINIOGEN DIPSTICK (test code = URO) Normal mg/dL NEGATIVE UA NITRITE DIPSTICK (test code = CANELO) NEGATIVE NEGATIVE UA LEUKOCYTE ESTERASE W REFLEX (test code = LEUUR) NEGATIVE Yisel/uL NEGATIVE UA WBC (test code = WBCU) 0-5 per HPF 0-5 UA RBC (test code = RBCU) 0-2 #/HPF 0-5 UA EPITHELIAL CELLS (test code = EPIU) FEW per HPF FEW UA BACTERIA (test code = BACU) FEW #/HPF NONE Urine Source? Clean CatchBASIC METABOLIC [id number] 12:24:00* Test Item Value Reference Range Interpretation Comments SODIUM (test code = NA) 140 mmol/L 136-145 N POTASSIUM (test code = K) 5.3 mmol/L 3.5-5.1 H CHLORIDE (test code = CL) 110.0 mmol/L 98-107 H CARBON DIOXIDE (test code = CO2) 24.0 mmol/L 21-32 N ANION GAP (test code = GAP) 11.3 10-20 N GLUCOSE (test code = GLU) 97 mg/dL 74-106 N BLOOD UREA NITROGEN (test code = BUN) 21 mg/dL 7-18 H GLOMERULAR FILTRATION RATE (test code = GFR) 29 mL/min >=60 Estimated GFR by using Modified MDRD formula.Chronic kidney disease is defined as either kidney damageor GFR <60 mL/min/1.73 m2 for >3 months. CREATININE (test code = CREAT) 1.70 mg/dL 0.55-1.02 H Note change in reference range due to change in reagent. BUN/CREATININE RATIO (test code = BUN/CREA) 12.6 10-20 N CALCIUM (test code = CA) 9.8 mg/dL 8.5-10.1 N HEPATIC FUNCTION [id number] 12:24:00* Test Item Value Reference Range Interpretation Comments TOTAL PROTEIN (test code = PROT) 7.6 gram/dL 6.4-8.2 N ALBUMIN (test code = ALB) 3.8 g/dL 3.4-5.0 N GLOBULIN (test code = GLOB) 3.8 gram/dL 2.7-4.2 N ALBUMIN/GLOBULIN RATIO (test code = A/G) 1.0 0.75-1.50 N BILIRUBIN TOTAL (test code = BILT) 0.30 mg/dL 0.0-1.0 N BILIRUBIN DIRECT (test code = BILD) 0.09 mg/dL 0.0-0.20 N SGOT/AST (test code = AST) 38 IUnit/L 15-37 H SGPT/ALT (test code = ALT) 36 IUnit/L 12-78 N ALKALINE PHOSPHATASE TOTAL (test code = ALKP) 61 IUnit/L 45-117 N Note change in reference range due to change in reagent. [id number] 12:24:00* Test Item Value Reference Range Interpretation Comments LIPASE (test code = LIP) 55 U/L 73.0-393.0 L HCG SERUM [id number] 12:24:00* Test Item Value Reference Range Interpretation Comments HCG SERUM QUAL (test code = HCGQL) NEGATIVE NEGATIVE This HCGQL test is NOT applicable for MALE patients.Check with nurse about probable order error.If Tumor Marker Test needed, nurse should order test "HCGTU"(Test #[id number]) [id number] 12:24:00* Test Item Value Reference Range Interpretation Comments TROPONIN-I (test code = TROPI) <0.015 ng/mL 0-0.045 N BASIC METABOLIC [id number] 12:23:00* Test Item Value Reference Range Interpretation Comments SODIUM (test code = NA) 140 mmol/L 136-145 N POTASSIUM (test code = K) 5.3 mmol/L 3.5-5.1 H CHLORIDE (test code = CL) 110.0 mmol/L 98-107 H CARBON DIOXIDE (test code = CO2) 24.0 mmol/L 21-32 N ANION GAP (test code = GAP) 11.3 10-20 N GLUCOSE (test code = GLU) 97 mg/dL 74-106 N BLOOD UREA NITROGEN (test code = BUN) 21 mg/dL 7-18 H GLOMERULAR FILTRATION RATE (test code = GFR) 29 mL/min >=60 Estimated GFR by using Modified MDRD formula.Chronic kidney disease is defined as either kidney damageor GFR <60 mL/min/1.73 m2 for >3 months. CREATININE (test code = CREAT) 1.70 mg/dL 0.55-1.02 H Note change in reference range due to change in reagent. BUN/CREATININE RATIO (test code = BUN/CREA) 12.6 10-20 N CALCIUM (test code = CA) 9.8 mg/dL 8.5-10.1 N HEPATIC FUNCTION [id number] 12:23:00* Test Item Value Reference Range Interpretation Comments TOTAL PROTEIN (test code = PROT) 7.6 gram/dL 6.4-8.2 N ALBUMIN (test code = ALB) 3.8 g/dL 3.4-5.0 N GLOBULIN (test code = GLOB) 3.8 gram/dL 2.7-4.2 N ALBUMIN/GLOBULIN RATIO (test code = A/G) 1.0 0.75-1.50 N BILIRUBIN TOTAL (test code = BILT) 0.30 mg/dL 0.0-1.0 N BILIRUBIN DIRECT (test code = BILD) 0.09 mg/dL 0.0-0.20 N SGOT/AST (test code = AST) 38 IUnit/L 15-37 H SGPT/ALT (test code = ALT) 36 IUnit/L 12-78 N ALKALINE PHOSPHATASE TOTAL (test code = ALKP) 61 IUnit/L 45-117 N Note change in reference range due to change in reagent. [id number] 12:23:00* Test Item Value Reference Range Interpretation Comments LIPASE (test code = LIP) 55 U/L 73.0-393.0 L HCG SERUM [id number] 12:23:00* Test Item Value Reference Range Interpretation Comments HCG SERUM QUAL (test code = HCGQL) NEGATIVE [id number] 12:23:00* Test Item Value Reference Range Interpretation Comments TROPONIN-I (test code = TROPI) <0.015 ng/mL 0-0.045 N BASIC METABOLIC [id number] 12:16:00* Test Item Value Reference Range Interpretation Comments SODIUM (test code = NA) 140 mmol/L 136-145 N POTASSIUM (test code = K) 5.3 mmol/L 3.5-5.1 H CHLORIDE (test code = CL) 110.0 mmol/L 98-107 H CARBON DIOXIDE (test code = CO2) mmol/L 21-32 ANION GAP (test code = GAP) 10-20 GLUCOSE (test code = GLU) mg/dL 74-106 BLOOD UREA NITROGEN (test code = BUN) mg/dL 7-18 GLOMERULAR FILTRATION RATE (test code = GFR) mL/min >=60 CREATININE (test code = CREAT) mg/dL 0.55-1.02 BUN/CREATININE RATIO (test code = BUN/CREA) 10-20 CALCIUM (test code = CA) mg/dL 8.5-10.1 HEPATIC FUNCTION [id number] 12:16:00* Test Item Value Reference Range Interpretation Comments TOTAL PROTEIN (test code = PROT) gram/dL 6.4-8.2 ALBUMIN (test code = ALB) g/dL 3.4-5.0 GLOBULIN (test code = GLOB) gram/dL 2.7-4.2 ALBUMIN/GLOBULIN RATIO (test code = A/G) 0.75-1.50 BILIRUBIN TOTAL (test code = BILT) mg/dL 0.0-1.0 BILIRUBIN DIRECT (test code = BILD) mg/dL 0.0-0.20 SGOT/AST (test code = AST) IUnit/L 15-37 SGPT/ALT (test code = ALT) IUnit/L 12-78 ALKALINE PHOSPHATASE TOTAL (test code = ALKP) IUnit/L 45-117 [id number] 12:16:00* Test Item Value Reference Range Interpretation Comments LIPASE (test code = LIP) U/L 73.0-393.0 HCG SERUM [id number] 12:16:00* Test Item Value Reference Range Interpretation Comments HCG SERUM QUAL (test code = HCGQL) NEGATIVE [id number] 12:16:00* Test Item Value Reference Range Interpretation Comments TROPONIN-I (test code = TROPI) ng/mL 0-0.045 CBC W/O [id number] 12:15:00* Test Item Value Reference Range Interpretation Comments WHITE BLOOD CELL (test code = WBC) 5.7 K/mm3 4.5-12.5 N RED BLOOD CELL (test code = RBC) 3.65 mill/mm3 3.7-5.2 L HEMOGLOBIN (test code = HGB) 10.9 gram/dL 11.5-15.5 L HEMATOCRIT (test code = HCT) 35.5 % 36.0-46.0 L MEAN CELL VOLUME (test code = MCV) 97.3 fL 80-98 N MEAN CELL HGB (test code = MCH) 29.9 picogram 27.0-33.0 N MEAN CELL HGB CONCETRATION (test code = MCHC) 30.7 gram/dL 33.0-36. 0 L RED CELL DISTRIBUTION WIDTH (test code = RDW) 13.5 % 11.6-16. 2 N PLATELET COUNT (test code = PLT) 219 K/mm3 150-450 N MEAN PLATELET VOLUME (test code = MPV) 9.3 fL 6.7-11.0 N CBC W/O [id number] 12:11:00* Test Item Value Reference Range Interpretation Comments WHITE BLOOD CELL (test code = WBC) K/mm3 4.5-12.5 RED BLOOD CELL (test code = RBC) mill/mm3 3.7-5.2 HEMOGLOBIN (test code = HGB) gram/dL 11.5-15.5 HEMATOCRIT (test code = HCT) % 36.0-46.0 MEAN CELL VOLUME (test code = MCV) fL 80-98 MEAN CELL HGB (test code = MCH) picogram 27.0-33.0 MEAN CELL HGB CONCETRATION (test code = MCHC) gram/dL 33.0-36. 0 RED CELL DISTRIBUTION WIDTH (test code = RDW) % 11.6-16. 2 PLATELET COUNT (test code = PLT) 219 K/mm3 150-450 N MEAN PLATELET VOLUME (test code = MPV) fL 6.7-11.0 BASIC METABOLIC [id number] 12:15:00* Test Item Value Reference Range Interpretation Comments SODIUM (test code = NA) 142 mmol/L 136-145 N POTASSIUM (test code = K) 4.7 mmol/L 3.5-5.1 N CHLORIDE (test code = CL) 109.0 mmol/L 98-107 H CARBON DIOXIDE (test code = CO2) 25.0 mmol/L 21-32 N ANION GAP (test code = GAP) 12.7 10-20 N GLUCOSE (test code = GLU) 106 mg/dL 74-106 N BLOOD UREA NITROGEN (test code = BUN) 20 mg/dL 7-18 H GLOMERULAR FILTRATION RATE (test code = GFR) 29 mL/min >=60 Estimated GFR by using Modified MDRD formula.Chronic kidney disease is defined as either kidney damageor GFR <60 mL/min/1.73 m2 for >3 months. CREATININE (test code = CREAT) 1.70 mg/dL 0.55-1.02 H Note change in reference range due to change in reagent. BUN/CREATININE RATIO (test code = BUN/CREA) 11.6 10-20 N CALCIUM (test code = CA) 9.2 mg/dL 8.5-10.1 N [id number] 12:15:00* Test Item Value Reference Range Interpretation Comments TROPONIN-I (test code = TROPI) <0.015 ng/mL 0-0.045 N BASIC METABOLIC [id number] 12:12:00* Test Item Value Reference Range Interpretation Comments SODIUM (test code = NA) 142 mmol/L 136-145 N POTASSIUM (test code = K) 4.7 mmol/L 3.5-5.1 N CHLORIDE (test code = CL) 109.0 mmol/L 98-107 H CARBON DIOXIDE (test code = CO2) mmol/L 21-32 ANION GAP (test code = GAP) 10-20 GLUCOSE (test code = GLU) mg/dL 74-106 BLOOD UREA NITROGEN (test code = BUN) mg/dL 7-18 GLOMERULAR FILTRATION RATE (test code = GFR) mL/min >=60 CREATININE (test code = CREAT) mg/dL 0.55-1.02 BUN/CREATININE RATIO (test code = BUN/CREA) 10-20 CALCIUM (test code = CA) mg/dL 8.5-10.1 [id number] 12:12:00* Test Item Value Reference Range Interpretation Comments TROPONIN-I (test code = TROPI) ng/mL 0-0.045 - XR CHEST 1 [id number] 12:07:00 FAX: Terry Colorado MD [place]: St: PRE Name: LUCINDA ALICEA [facility] : [birth year] Age/S: 84/F [address] [facility] Unit #: [id number] Loc: [place] [address] Phys: Terry Colorado MD Acct: [id number] Dis Date: Status: PRE ER PHONE #: [phone] Exam Date: 01/20/2020 1144 FAX #: [phone] Reason: CHEST PAIN EXAMS: CPT CODE: [id number] XR CHEST 1 V 67905 HISTORY: CHEST PAIN TECHNIQUE: AP chest x-ray COMPARISON: 08/18/18 FINDIN GS: No airspace consolidation or pleural effusion. Right perihilar scarring. Normal heart size. Mediastinal silhouette is unremarkable. Degenerative changes of the spine and shoulders. IMPRESSION: No acute findings or significant interval change. LOCATION: LP at 1207 Reported and signed by: Lisette Dee D.O. CC: Terry Colorado MD Technologist: SILVA CARDONA(R) Trnscrd Date/Time/By: 01/20/2020 (6846) : By: [email or web address] Orig Print D/T: S: 01/20/2020 (1210) PAGE 1 Signed Report CBC W/O [id number] 11:51:00* Test Item Value Reference Range Interpretation Comments WHITE BLOOD CELL (test code = WBC) 6.7 K/mm3 4.5-12.5 N RED BLOOD CELL (test code = RBC) 3.67 mill/mm3 3.7-5.2 L HEMOGLOBIN (test code = HGB) 11.1 gram/dL 11.5-15.5 L HEMATOCRIT (test code = HCT) 36.0 % 36.0-46.0 N MEAN CELL VOLUME (test code = MCV) 98.1 fL 80-98 H MEAN CELL HGB (test code = MCH) 30.2 picogram 27.0-33.0 N MEAN CELL HGB CONCETRATION (test code = MCHC) 30.8 gram/dL 33.0-36. 0 L RED CELL DISTRIBUTION WIDTH (test code = RDW) 13.7 % 11.6-16. 2 N PLATELET COUNT (test code = PLT) 232 K/mm3 150-450 N MEAN PLATELET VOLUME (test code = MPV) 9.2 fL 6.7-11.0 N URINALYSIS [id number] 13:39:00* Test Item Value Reference Range Interpretation Comments UA COLOR (test code = COLU) COLORLESS YELLOW A UA APPEARANCE (test code = APPU) CLEAR CLEAR UA GLUCOSE DIPSTICK (test code = DGLUU) NEGATIVE mg/dL NEGATIVE UA BILIRUBIN DIPSTICK (test code = BILU) NEGATIVE mg/dL NEGATIVE UA KETONE DIPSTICK (test code = KETU) NEGATIVE mg/dL NEGATIVE UA SPECIFIC GRAVITY (test code = SGU) 1.006 1.001-1.035 UA BLOOD DIPSTICK (test code = PEDRO) Negative mg/dL NEGATIVE UA PH DIPSTICK (test code = NOHELIA) 5.5 5.0-8.0 UA PROTEIN DIPSTICK (test code = PROU) NEGATIVE mg/dL NEGATIVE UA UROBILINIOGEN DIPSTICK (test code = URO) Normal mg/dL NEGATIVE UA NITRITE DIPSTICK (test code = CANELO) NEGATIVE NEGATIVE UA LEUKOCYTE ESTERASE W REFLEX (test code = LEUUR) NEGATIVE Yisel/uL NEGATIVE UA WBC (test code = WBCU) NONE SEEN per HPF 0-5 UA RBC (test code = RBCU) 0-2 #/HPF 0-5 UA EPITHELIAL CELLS (test code = EPIU) None seen per HPF Few UA BACTERIA (test code = BACU) NONE SEEN per HPF NONE UA HYALINE CAST (test code = HYALU) 0-2 #/LPF 0-5 Urine Source? Catheter- CT ABD PELVIS W/O [id number] 13:38:00 Name: LUCINDA REYES [facility] : 1935 Age/S: 83 / F [address] [facility] [id number] Loc: [place] [address] Phys: Ishaan Nathan MD Acct: [id number] Di s Date: Status: REG ER PHONE #: Exam Date: 01/18/2019 1321 FAX #: [phone] Reason: abd pain, urinary retention EXAMS: CPT CODE: [id number] CT ABD PELVIS W/O CONT 03671 REASON FOR EXAM: abd pain, urinary retention EXAM ORDER DATE: 01/18/2019 12:10 PM Ordering M.D.: Ishaan Nathan MD PROCEDURE: - CT ABD PELVIS W/O CONT contrast axial CT images were acquired through the abdomen/pe lvis at 5 mm intervals. Sagittal and coronal reformatted images were gene rated. Automated exposure control was utilized for this reduction. Phases of contrast: None COMPARISON: 2 view of the abdomen and pelvis December 10, 2010 FINDINGS: The absence of IV contrast limits sensitivity of this exam for the detection of soft tissue pathology Visualized thorax: There is subsegmental atelectasis in the bilateral lung bases. There are also 2 pleural-based nodules, one in the right lobe and one left lobe (both nodules are on series 2 image 15). Measure between 4 and 5 mm. These nodules are unchanged from the pr evious study in 2010 and are likely benign. Calcified right perihilar lymp h node is unchanged. There are also calcifications in the mitral valve. Hepatobiliary system: Gallbladder surgically absent. There are sever al low-density lesions compatible with cysts seen throughout the liver. There is a cluster of cysts in the dome of the liver that measures up to 2.6 x 5.4 cm cross-sectionally that is unchanged from the previous exam . There are a few calcified granulomas in the left lobe. There is a cyst i n hepatic segment 3 that has decreased in size from a previous measurement of 2.4 x 2.0 cm in size and now measures approximately 1.1 x 1.4 cm in si ze. Pancreas: Atrophic with fatty replacement, more pronounced cecile n on the prior exam aerated Spleen: Costophrenic granulomas are seen throughout the spleen. 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 Kidneys appear grossly unremarkable. Uterus is grossly unremarkable. Gastrointestinal tract and appendix: Appendix is not visualized however no inflammatory changes are seen in the right lower abdomen. There is diverticular disease in the sigmoid colon but no evidence of diverticulitis. Abdominal vascular structures: Atherosclerotic disease is scattered throughout the abdominal aorta. Peritoneum and retroperitoneum: No free fluid or free air. No omental or mesenteric masses. No abnormal lymph nodes. Musculoskeletal structures and abdominal wall: Degenerative changes are seen throughout the visualized spine. There is vacuum phenomenon at L5-S1 intervertebral disc IMPRESSION: No acute intra-abdominal process. Multiple hepatic cysts are redemonstrated and either smaller or stable in size from the previous study. Colonic diverticulosis without evidence of diverticulitis. at 133 Reported and signed by: Nain Ko MD CC: Leah Nathan MD Technologist:Joyce Flood,RT(R),CT; Carolyn CTDI: DLP: Trnscb Date/Time: 01/18/2019 (7539) [email or web address] Orig Print D/T: S: 01/18/2019 (7926) PAGE 2 Signed Report URINALYSIS COMPLETE 2019-01-18 13:21:00* Test Item Value Reference Range Interpretation Comments UA COLOR (test code = COLU) COLORLESS YELLOW A UA APPEARANCE (test code = APPU) CLEAR CLEAR UA GLUCOSE DIPSTICK (test code = DGLUU) NEGATIVE mg/dL NEGATIVE UA BILIRUBIN DIPSTICK (test code = BILU) NEGATIVE mg/dL NEGATIVE UA KETONE DIPSTICK (test code = KETU) NEGATIVE mg/dL NEGATIVE UA SPECIFIC GRAVITY (test code = SGU) 1.006 1.001-1.035 UA BLOOD DIPSTICK (test code = PEDRO) Negative mg/dL NEGATIVE UA PH DIPSTICK (test code = NOHELIA) 5.5 5.0-8.0 UA PROTEIN DIPSTICK (test code = PROU) NEGATIVE mg/dL NEGATIVE UA UROBILINIOGEN DIPSTICK (test code = URO) Normal mg/dL NEGATIVE UA NITRITE DIPSTICK (test code = CANELO) NEGATIVE NEGATIVE UA LEUKOCYTE ESTERASE W REFLEX (test code = LEUUR) NEGATIVE Yisel/uL NEGATIVE UA WBC (test code = WBCU) per HPF 0-5 UA RBC (test code = RBCU) per HPF 0-5 UA EPITHELIAL CELLS (test code = EPIU) per HPF Few UA BACTERIA (test code = BACU) per HPF NONE Urine Source? CatheterURINALYSIS [id number] 13:21:00* Test Item Value Reference Range Interpretation Comments UA COLOR (test code = COLU) COLORLESS YELLOW A UA APPEARANCE (test code = APPU) CLEAR CLEAR UA GLUCOSE DIPSTICK (test code = DGLUU) NEGATIVE mg/dL NEGATIVE UA BILIRUBIN DIPSTICK (test code = BILU) NEGATIVE mg/dL NEGATIVE UA KETONE DIPSTICK (test code = KETU) NEGATIVE mg/dL NEGATIVE UA SPECIFIC GRAVITY (test code = SGU) 1.006 1.001-1.035 UA BLOOD DIPSTICK (test code = PEDRO) Negative mg/dL NEGATIVE UA PH DIPSTICK (test code = NOHELIA) 5.5 5.0-8.0 UA PROTEIN DIPSTICK (test code = PROU) NEGATIVE mg/dL NEGATIVE UA UROBILINIOGEN DIPSTICK (test code = URO) Normal mg/dL NEGATIVE UA NITRITE DIPSTICK (test code = CANELO) NEGATIVE NEGATIVE UA LEUKOCYTE ESTERASE W REFLEX (test code = LEUUR) NEGATIVE Yisel/uL NEGATIVE UA WBC (test code = WBCU) per HPF 0-5 UA RBC (test code = RBCU) 0-2 #/HPF 0-5 UA EPITHELIAL CELLS (test code = EPIU) per HPF Few UA BACTERIA (test code = BACU) per HPF NONE UA HYALINE CAST (test code = HYALU) 0-2 #/LPF 0-5 Urine Source? CatheterBASIC METABOLIC [id number] 12:10:00* Test Item Value Reference Range Interpretation Comments SODIUM (test code = NA) 140 mmol/L 136-145 N POTASSIUM (test code = K) 4.3 mmol/L 3.5-5.1 N CHLORIDE (test code = CL) 110.0 mmol/L 98-107 H CARBON DIOXIDE (test code = CO2) 21.0 mmol/L 21-32 N ANION GAP (test code = GAP) 13.3 10-20 N GLUCOSE (test code = GLU) 103 mg/dL 74-106 N BLOOD UREA NITROGEN (test code = BUN) 34 mg/dL 7-18 H GLOMERULAR FILTRATION RATE (test code = GFR) 31 mL/min >=60 Estimated GFR by using Modified MDRD formula.Chronic kidney disease is defined as either kidney damageor GFR <60 mL/min/1.73 m2 for >3 months. CREATININE (test code = CREAT) 1.60 mg/dL 0.55-1.02 H Note change in reference range due to change in reagent. BUN/CREATININE RATIO (test code = BUN/CREA) 21.3 10-20 H CALCIUM (test code = CA) 9.9 mg/dL 8.5-10.1 N HEPATIC FUNCTION [id number] 12:10:00* Test Item Value Reference Range Interpretation Comments TOTAL PROTEIN (test code = PROT) 7.9 gram/dL 6.4-8.2 N ALBUMIN (test code = ALB) 4.1 g/dL 3.4-5.0 N GLOBULIN (test code = GLOB) 3.8 gram/dL 2.7-4.2 N ALBUMIN/GLOBULIN RATIO (test code = A/G) 1.1 0.75-1.50 N BILIRUBIN TOTAL (test code = BILT) 0.40 mg/dL 0.0-1.0 N BILIRUBIN DIRECT (test code = BILD) 0.10 mg/dL 0.0-0.20 N SGOT/AST (test code = AST) 23 IUnit/L 15-37 N SGPT/ALT (test code = ALT) 27 IUnit/L 12-78 N ALKALINE PHOSPHATASE TOTAL (test code = ALKP) 74 IUnit/L 45-117 N Note change in reference range due to change in reagent. [id number] 12:10:00* Test Item Value Reference Range Interpretation Comments LIPASE (test code = LIP) 90 U/L 73.0-393.0 N CBC W/AUTO [id number] 12:00:00* Test Item Value Reference Range Interpretation Comments WHITE BLOOD CELL (test code = WBC) 6.8 K/mm3 4.5-12.5 N RED BLOOD CELL (test code = RBC) 3.69 mill/mm3 3.7-5.2 L HEMOGLOBIN (test code = HGB) 10.9 gram/dL 11.5-15.5 L HEMATOCRIT (test code = HCT) 34.4 % 36.0-46.0 L MEAN CELL VOLUME (test code = MCV) 93.2 fL 80-98 N MEAN CELL HGB (test code = MCH) 29.5 picogram 27.0-33.0 N MEAN CELL HGB CONCETRATION (test code = MCHC) 31.7 gram/dL 33.0-36. 0 L RED CELL DISTRIBUTION WIDTH (test code = RDW) 14.2 % 11.6-16. 2 N RED CELL DISTRIBUTION WIDTH SD (test code = RDW-SD) 48.3 fL 37 .0-51.0 N PLATELET COUNT (test code = PLT) 248 K/mm3 150-450 N MEAN PLATELET VOLUME (test code = MPV) 9.5 fL 6.7-11.0 N NEUTROPHIL % (test code = NT%) 48.9 % 39.0-69.0 N IMMATURE GRANULOCYTE % (test code = IG%) 0.7 % 0.0-5.0 N LYMPHOCYTE % (test code = LY%) 38.7 % 25.0-55.0 N MONOCYTE % (test code = MO%) 8.5 % 0.0-10.0 N EOSINOPHIL % (test code = EO%) 2.2 % 0.0-5.0 N BASOPHIL % (test code = BA%) 1.0 % 0.0-1.0 N NUCLEATED RBC % (test code = NRBC%) 0.0 % 0-0 N NEUTROPHIL # (test code = NT#) 3.34 K/mm3 1.8-7.7 N IMMATURE GRANULOCYTE # (test code = IG#) 0.05 x10 3/uL 0-0.03 H LYMPHOCYTE # (test code = LY#) 2.64 K/mm3 1.0-5.0 N MONOCYTE # (test code = MO#) 0.58 K/mm3 0-0.8 N EOSINOPHIL # (test code = EO#) 0.15 K/mm3 0.0-0.5 N BASOPHIL # (test code = BA#) 0.07 K/mm3 0.0-0.2 N NUCLEATED RBC # (test code = NRBC#) 0.00 K/mm3 0.0-0.1 N MANUAL DIFF REQUIRED (test code = MDIFF) NO BASIC METABOLIC [id number] 11:58:00* Test Item Value Reference Range Interpretation Comments SODIUM (test code = NA) 140 mmol/L 136-145 N POTASSIUM (test code = K) 4.3 mmol/L 3.5-5.1 N CHLORIDE (test code = CL) 110.0 mmol/L 98-107 H CARBON DIOXIDE (test code = CO2) mmol/L 21-32 ANION GAP (test code = GAP) 10-20 GLUCOSE (test code = GLU) mg/dL 74-106 BLOOD UREA NITROGEN (test code = BUN) mg/dL 7-18 GLOMERULAR FILTRATION RATE (test code = GFR) mL/min >=60 CREATININE (test code = CREAT) mg/dL 0.55-1.02 BUN/CREATININE RATIO (test code = BUN/CREA) 10-20 CALCIUM (test code = CA) mg/dL 8.5-10.1 HEPATIC FUNCTION [id number] 11:58:00* Test Item Value Reference Range Interpretation Comments TOTAL PROTEIN (test code = PROT) gram/dL 6.4-8.2 ALBUMIN (test code = ALB) g/dL 3.4-5.0 GLOBULIN (test code = GLOB) gram/dL 2.7-4.2 ALBUMIN/GLOBULIN RATIO (test code = A/G) 0.75-1.50 BILIRUBIN TOTAL (test code = BILT) mg/dL 0.0-1.0 BILIRUBIN DIRECT (test code = BILD) mg/dL 0.0-0.20 SGOT/AST (test code = AST) IUnit/L 15-37 SGPT/ALT (test code = ALT) IUnit/L 12-78 ALKALINE PHOSPHATASE TOTAL (test code = ALKP) IUnit/L 45-117 [id number] 11:58:00* Test Item Value Reference Range Interpretation Comments LIPASE (test code = LIP) U/L 73.0-393.0 CBC W/O [id number] 18:08:00* Test Item Value Reference Range Interpretation Comments WHITE BLOOD CELL (test code = WBC) 8.7 K/mm3 4.5-12.5 N RED BLOOD CELL (test code = RBC) 4.02 mill/mm3 3.7-5.2 N HEMOGLOBIN (test code = HGB) 11.8 gram/dL 11.5-15.5 N HEMATOCRIT (test code = HCT) 39.0 % 36.0-46.0 N MEAN CELL VOLUME (test code = MCV) 97.0 fL 80-98 N MEAN CELL HGB (test code = MCH) 29.4 picogram 27.0-33.0 N MEAN CELL HGB CONCETRATION (test code = MCHC) 30.3 gram/dL 33.0-36. 0 L RED CELL DISTRIBUTION WIDTH (test code = RDW) 13.5 % 11.6-16. 2 N PLATELET COUNT (test code = PLT) 298 K/mm3 150-450 N MEAN PLATELET VOLUME (test code = MPV) 9.9 fL 6.7-11.0 N CBC W/O [id number] 18:05:00* Test Item Value Reference Range Interpretation Comments WHITE BLOOD CELL (test code = WBC) K/mm3 4.5-12.5 RED BLOOD CELL (test code = RBC) mill/mm3 3.7-5.2 HEMOGLOBIN (test code = HGB) 11.8 gram/dL 11.5-15.5 N HEMATOCRIT (test code = HCT) 39.0 % 36.0-46.0 N MEAN CELL VOLUME (test code = MCV) fL 80-98 MEAN CELL HGB (test code = MCH) picogram 27.0-33.0 MEAN CELL HGB CONCETRATION (test code = MCHC) gram/dL 33.0-36. 0 RED CELL DISTRIBUTION WIDTH (test code = RDW) % 11.6-16. 2 PLATELET COUNT (test code = PLT) K/mm3 150-450 MEAN PLATELET VOLUME (test code = MPV) fL 6.7-11.0 - CT C-SPINE W/O [id number] 18:04:00 Name: LUCINDA REYES [facility] : 1935 Age/S: 83 / F [address] [facility]: [id number] Loc: [place] [address] Phys: Rafia Mcdaniels DO Acct: [id number] Dis Date: Status: REG ER PHONE #: [phone] Exam Date: 08/18/2018 1744 FAX #: [phone] Reason: Neck Pain EXAMS: CPT CODE: [id number] CT C-SPINE W/O CONTRAST 44703 REASON FOR EXAM: Neck Pain EXAM ORDER DATE: 08/18/2018 5:02 PM Ordering MPal: Rafia Mcdaniels DO PROCEDURE: - CT C-SPINE W/O CONTRAST FINDINGS: CT images of the cervical spine were obtained without IV contrast at 2.5mm. Reconstructed coronal and sagittal images were also provided. Dose reduction techniques were applied The osseous structures are intact. The central canal is patent. The disc spaces are maintained. IMPRESSION: Unremarkable cervical spine. at 1804 Reported and signed by: Terry Mccallum M.D. CC: Rafia Mcdaniels DO Technologist:ROSEANN CARDONA(R); Renetta Maria CTDI: DLP: Trnscb Date/Time: 08/18/2018 (1803) Matt Orig Print D/T: S: 08/18/2018 (1806) CTDI: DLP: PAGE 1 Signed Report - CT HEAD/BRAIN W/O [id number] 17:55:00 Name: LUCINDA REYES [facility] : 1935 Age/S: 83 / F [address] Unit #: [id number] Loc: [place], [place] [address] Phys: Colby Mcdaniels Acct: [id number] Di s Date: Status: REG ER PHONE #: Exam Date: 08/18/2018 1748 FAX #: Reason: HEADACHE EXAMS: CPT CODE: [id number] CT HEAD/BRAIN W/O CONT 96921 REASON FOR EXAM: HEADACHE EXAM ORDER DATE: 08/18/2018 5:02 PM Ordering MPal: Rafia Mcdaniels DO PROCEDURE: - CT HEAD/BRAIN W/O CONT COMPARISON: FINDINGS: CT images of the brain were obta ined without IV contrast. Dose reduction techniques were applied. Mild patchy low densities appearance of the paraventricular region noted consistent with nonspecific white matter disease. The fallon-white mat ter delineation is unremarkable. The ventricles, cisterns, and sulci are u nremarkable. There is no evidence of hemorrhage, mass, mass effect. There is no evidence of acute or old infarct. The calvarium is intact. IMPRESSION: Unremarkable brain. Electronically Sign ed by Priya Mccallum on 08/18/2018 at 1755 Reported and si gned by: Terry Mccallum M.D. CC: Rafia Mcdaniels DO Technologist:ROSEANN CASILLAS RT(R); Renetta Maria CTDI: DLP: Trnscb Date/Time: 08/18/2018 (431) [email or web address] Orig Print D/T: S: 08/18/2018 (4673) CTDI: DLP: PAGE 1 Signed Report - XR T-SPINE 3 VIEWS 2018-08-18 17:39:00 FAX: Rafia Mcdaniels DO [place]: B St: REG Name: LUCINDA ALICEA [facility] : [birth year] Age/S: 83/F [address] Unit #: [id number] Loc: [place] [address] Phys: Rafia Mcdaniels DO Acct: [id number] Dis Date: Status: REG ER PHONE #: [phone] Exam Date: 08/18/2018 1735 FAX #: [phone] Reason: BACK PAIN EXAMS: CPT CODE: [id number] XR T-SPINE 3 VIEWS 24517 REASON FOR EXAM: BACK PAIN EXAM ORDER DATE: 08/18/2018 5:02 PM Ordering Priya: Rafia Mcdaniels DO PROCEDURE: - XR T-SPINE 3 VIE WS FINDINGS: 3 views of the thoracic spine were obtained. There i s normal alignment of the thoracic spine. The vertebral bodies are unremarkable in size and shape. The disc spaces are maintained. No evidenc e of fracture. IMPRESSION: Unremarkable thoracic spine at 1733 Reported and signed by: Terry Mccallum M.D. CC: Rafia Lane DO Technologist: Felipe CARDONA(Gerald) Trnscrd Date/Time/By: 08/18/2018 (6924) : By: CathyL Orig Print D/T: S: 08/18/2018 (4353) PAGE 1 Signed Report - XR CHEST 1 [id number] 17:39:00 FAX: Rafia Mcdaniels DO [place]: B St: REG Name: LUCINDA ALICEA [facility] : [birth year] Age/S: 83/F [address] Unit #: [id number] [place]: [place] [address] Phys: Rafia Mcdaniels DO Acct: [id number] Dis Date: Status: REG ER PHONE #: [phone] Exam Date: 08/18/2018 1730 FAX #: [phone] Reason: CHEST PAIN EXAMS: CPT CODE: [id number] XR CHEST 1 V 31536 REASON FOR EXAM: CHEST PAIN EXAM ORDER DATE: 08/18/2018 5:02 PM Ordering Priya: Rafia Mcdaniels DO PROCEDURE: - XR CHEST 1 V COMP ARISON: FINDINGS: Portable AP frontal view of the chest obtained at 5:27 PM shows clear lungs. There is no evidence of consolidation. There is no evidence of effusion. The heart size is within normal limits. Pulmonary vasculatures are unremarkable. IMPRESSION: No active disease. at 1730 Reported and signed by: Terry Mccallum M.D. CC: Rafia Mcdaniels DO Technologist: Felipe Zuñiga RT(R) Trnscrd Date/Time/By: (1361) : By: CathyL Orig Print D/T: S: 08/18/2018 (2962) PAGE 1 Signed Report [id number] 17:36:00* Test Item Value Reference Range Interpretation Comments TROPONIN-I (test code = TROPI) <0.015 ng/mL 0-0.045 N BASIC METABOLIC [id number] 17:29:00* Test Item Value Reference Range Interpretation Comments SODIUM (test code = NA) 139 mmol/L 136-145 N POTASSIUM (test code = K) 4.8 mmol/L 3.5-5.1 N CHLORIDE (test code = CL) 105.0 mmol/L 98-107 N CARBON DIOXIDE (test code = CO2) 26.0 mmol/L 21-32 N ANION GAP (test code = GAP) 12.8 10-20 N GLUCOSE (test code = GLU) 125 mg/dL 74-106 H BLOOD UREA NITROGEN (test code = BUN) 22 mg/dL 7-18 H GLOMERULAR FILTRATION RATE (test code = GFR) 24 mL/min >=60 Estimated GFR by using Modified MDRD formula.Chronic kidney disease is defined as either kidney damageor GFR <60 mL/min/1.73 m2 for >3 months. CREATININE (test code = CREAT) 2.00 mg/dL 0.55-1.02 H Note change in reference range due to change in reagent. BUN/CREATININE RATIO (test code = BUN/CREA) 11.3 10-20 N CALCIUM (test code = CA) 10.2 mg/dL 8.5-10.1 H BASIC METABOLIC [id number] 17:23:00* Test Item Value Reference Range Interpretation Comments SODIUM (test code = NA) 139 mmol/L 136-145 N POTASSIUM (test code = K) 4.8 mmol/L 3.5-5.1 N CHLORIDE (test code = CL) 105.0 mmol/L 98-107 N CARBON DIOXIDE (test code = CO2) mmol/L 21-32 ANION GAP (test code = GAP) 10-20 GLUCOSE (test code = GLU) mg/dL 74-106 BLOOD UREA NITROGEN (test code = BUN) mg/dL 7-18 GLOMERULAR FILTRATION RATE (test code = GFR) mL/min >=60 CREATININE (test code = CREAT) mg/dL 0.55-1.02 BUN/CREATININE RATIO (test code = BUN/CREA) 10-20 CALCIUM (test code = CA) mg/dL 8.5-10.1
[2020-04-04] MEDS ORDERED: MECLIZINE HCL 12.5 MG TAB PO ONE (20:45)
--- NOTE | 2020-04-04 20:55 | Diagnostic Imaging Report ---
EXAMINATION: CHEST 2 VIEWS INDICATION: Pain. COMPARISON: None FINDINGS: TUBES and LINES: None. LUNGS: Lungs are hyperinflated. 8 mm oval calcific density projected on the lower lung on the lateral view suggestive of a granuloma. There is no evidence of pneumonia or pulmonary edema. PLEURA: No pleural effusion or pneumothorax. Biapical pleural scarring. HEART AND MEDIASTINUM: The cardiomediastinal silhouette is unremarkable. Thoracic aorta is mildly tortuous and unfolded. BONES AND SOFT TISSUES: There are degenerative changes in the thoracic spine. Soft tissues are unremarkable. UPPER ABDOMEN: No free air under the diaphragm. IMPRESSION: No acute thoracic abnormality. Signed by: Dr. Fadi Bobo M.D. on 04/04/2020 8:52 PM
[2020-04-04 21:06] VITALS: BP 154/69
== END 2020-04-04 21:09 | disposition home or self-care (01) ==
LOC: ER 19:53
DX: R07.9 Chest pain, unspecified (principal); R10.13 Epigastric pain; N28.9 Disorder of kidney and ureter, unspecified; I10 Essential (primary) hypertension; F31.9 Bipolar disorder, unspecified; G40.909 Epilepsy, unspecified, not intractable, without status epilepticus
CPT/HCPCS: 36415; 71046; 80053; 82550; 82553; 83880; 84484; 85025; 85379; 93005; 99284

== ENCOUNTER 2022-07-15 13:23 | Emergency (ER) | payer MEDICARE ==
[~2022-07-15] VITALS: Ht 165.1 cm; Wt 54.4 kg
[2022-07-15] MEDS ORDERED: KEFLEX125 MG/5 M PO (15:45)
[2022-07-15 15:46] VITALS: BP 129/74
== END 2022-07-15 15:52 | disposition home or self-care (01) ==
LOC: FSED 14:36
DX: R50.9 Fever, unspecified (principal); R42 Dizziness and giddiness; N17.9 Acute kidney failure, unspecified; E87.5 Hyperkalemia; E86.0 Dehydration; E86.1 Hypovolemia; I10 Essential (primary) hypertension; G40.909 Epilepsy, unspecified, not intractable, without status epilepticus; D64.9 Anemia, unspecified; F41.9 Anxiety disorder, unspecified; R94.31 Abnormal electrocardiogram [ECG] [EKG]
CPT/HCPCS: 70450; 80053; 81003; 82553; 83518; 84484; 85025; 87400; 93005; 99283